=== PATIENT | female | born 1960 | race Caucasian/White ===

== ENCOUNTER → 2019-07-25 14:24 | Outpatient (CLI) | payer OTHER, SELFPAY ==
--- NOTE | ~2019-07-25 | CT_ITS ---
EXAMINATION: CT abdomen pelvis wo con EXAM DATE: 07/25/2019 14:48 INDICATION: Left lower quadrant pain. TECHNIQUE: Spiral CT of the abdomen and pelvis was performed without contrast. Axial, coronal and s agittal images were reviewed. The dose-length product (DLP) for this examination was 768.39 mGy-cm. The exposure was tailored according to patient size (auto mA exposure control), and iterative recons truction (ASIR) was used as additional dose reduction technique. There is no prior study for compari son. FINDINGS: The liver, spleen, adrenal glands and pancreas are unremarkable. Gallbladder is unremarkab le. No biliary obstruction. There is no nephrolithiasis or hydronephrosis. The uterus is unremark able. The bladder is unremarkable. There is no retroperitoneal or pelvic lymphadenopathy. The appendix is normal. The stomach and small bowel are unremarkable. There is expected amount of c olonic stool. No free intraperitoneal gas. The heart is normal in size. There are no pericardial or pleural effusions. The lung bases are unremarkable. Moderate to severe disc disease from L2-S1. There are no osteoblastic or osteolytic lesions identified. IMPRESSION: 1. No acute intra-abdominal findings. Reviewed, dictated and finalized at location A. 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
--- NOTE | ~2019-07-25 | XR_ITS ---
EXAMINATION: XR abdomen/kub 1V DATE: 07/25/2019 14:48 INDICATION: Left lower quadrant pain TECHNIQUE: KUB. FINDINGS: No prior studies for comparison. The visualized lung parenchyma is normal.. There is a nonobstructive bowel gas pattern. Gas and stool are seen throughout the colon to the level of the rectum. There is no free air. Moderate lumbar spo ndylosis with levoscoliosis. No abnormal calcifications. IMPRESSION: 1. No acute abdominal abnormality. Reviewed, dictated and finalized at location B. 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
== END ==
PROVIDERS: PCP Family Medicine; Visit Provider Urology
DX: R10.32 Left lower quadrant pain (principal)
CPT/HCPCS: 74018; 74176

== ENCOUNTER → 2021-01-26 07:00 | Outpatient (CLI) | payer OTHER, SELFPAY ==
[2021-01-26 21:00] LABS: SARS-CoV-2 RNA PCR Negative
== END ==
PROVIDERS: PCP Family Medicine; Visit Provider Family Medicine
DX: R51.9 Headache, unspecified (principal); R11.0 Nausea; R19.7 Diarrhea, unspecified; J02.9 Acute pharyngitis, unspecified; Z20.828 Contact with and (suspected) exposure to other viral communicable diseases
CPT/HCPCS: C9803; U0003; U0005

== ENCOUNTER 2021-04-25 15:56 | Outpatient (CLI) | payer OTHER, SELFPAY ==
--- NOTE | ~2021-04-25 | MM_ITS ---
EXAMINATION: MM screening [facility] BI w cruzito HISTORY: Screening mammogram TECHNIQUE: Craniocaudal and mediolateral oblique 3-D tomosynthesis images were obtained and synthetic 2-D images were generated. CAD analysis was submitted and interpreted. COMPARISON: 04/07/2014, 10/11/2012 bilateral screening mammogram examinations BREAST PARENCHYMAL COMPOSITION: There are scattered areas of fibroglandular density. FINDINGS: There is no evidence of suspicious mass, calcification, or architectural distortion to sugg est malignancy in either breast. There has been no suspicious interval change. IMPRESSION: 1. No mammographic evidence of malignancy. 2. Recommend routine screening mammography in one year. BI-RADS Category 1: Negative Reviewed, dictated and finalized at location A. 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
== END 2021-04-25 15:57 | disposition home or self-care (01) ==
LOC: ANHIMG 15:58
PROVIDERS: PCP Family Medicine; Visit Provider Family Medicine
DX: Z12.31 Encounter for screening mammogram for malignant neoplasm of breast (principal)
CPT/HCPCS: 77063; 77067

== ENCOUNTER 2022-10-22 15:36 | Outpatient (CLI) | payer OTHER, SELFPAY ==
--- NOTE | ~2022-10-22 | MM_ITS ---
EXAMINATION: MM screening [facility] BI w cruzito HISTORY: Screening mammogram TECHNIQUE: Craniocaudal and mediolateral oblique 3-D tomosynthesis images were obtained and synthetic 2-D images were generated. CAD analysis was submitted and interpreted. COMPARISON: 04/25/2021, 04/07/2014 bilateral screening mammogram examinations BREAST PARENCHYMAL COMPOSITION: There are scattered areas of fibroglandular density. FINDINGS: There is no evidence of suspicious mass, calcification, or architectural distortion to sugg est malignancy in either breast. There has been no suspicious interval change. IMPRESSION: 1. No mammographic evidence of malignancy. 2. Recommend routine screening mammography in one year. BI-RADS Category 1: Negative Reviewed, dictated and finalized at location A.
== END 2022-10-22 15:37 | disposition home or self-care (01) ==
LOC: ANHIMG 15:41
PROVIDERS: PCP Family Medicine; Visit Provider Family Medicine
DX: Z12.31 Encounter for screening mammogram for malignant neoplasm of breast (principal)
CPT/HCPCS: 77063; 77067

== ENCOUNTER 2023-10-27 14:30 | Outpatient (CLI) | payer OTHER, SELFPAY ==
--- NOTE | ~2023-10-27 | MM_ITS ---
EXAMINATION: MM screening [facility] BI w cruzito HISTORY: Screening TECHNIQUE: Craniocaudal and mediolateral oblique 3-D tomosynthesis images were obtained and synthetic 2-D images were generated. CAD analysis was submitted and interpreted. COMPARISON: Comparison to multiple prior studies sequentially, with oldest reviewed study dated 03/25. BREAST PARENCHYMAL COMPOSITION: There are scattered areas of fibroglandular density. FINDINGS: There is no evidence of suspicious mass, calcification, or architectural distortion to sugg est malignancy in either breast. There has been no suspicious interval change. IMPRESSION: 1. No mammographic evidence of malignancy. 2. Recommend routine screening mammography in one year. BI-RADS Category 1: Negative Reviewed, dictated and finalized at location B.
== END 2023-10-27 14:31 | disposition home or self-care (01) ==
PROVIDERS: PCP Family Medicine; Visit Provider Family Medicine
DX: Z12.31 Encounter for screening mammogram for malignant neoplasm of breast (principal)
CPT/HCPCS: 77063; 77067

== ENCOUNTER 2024-04-29 00:39 | Day surgery (SDC) | payer OTHER, SELFPAY ==
[2024-04-11 12:17] VITALS: BMI 28.6
[2024-04-29 11:59] VITALS: BP 132/73; PULSE 107; RESP 18; TEMP 37.2; O2SAT 98
[2024-04-29] MEDS: LACTATED RINGERS 1,000 ML 150 ML IV CONT (12:00)
--- NOTE | 2024-04-29 12:25 | PM.HPGS ---
History of Present Illness History of Present Illness Consent: Risks, benefits, and alternatives have been discussed and questions answered. Patient agrees to proceed with procedure. Chief complaint: personal hx colon polyps Narrative: Naina Darden is a 64 year old female with colon polyp in 2019 Review of Systems Review of Systems: All systems reviewed & are unremarkable except as noted in HPI and below PMFSH Past Medical History Medical History BSOM (bilateral serous otitis media) Cervical dysplasia Chronic pain after traumatic injury Dyshydrosis Family hx-breast malignancy Laceration of scalp Lupus (systemic lupus erythematosus) Reaction to severe stress Spigelian hernia TMJ arthropathy Traumatic coccydynia Family History Family History Sibling Family history of glaucoma Family history of pancreatic cancer, Onset Age: 60 Father Hypertension Cerebrovascular accident Family history of coronary artery disease Mother Family history of malignant neoplasm of breast in first degree relative Sibling Early onset Alzheimer's dementia Other Family history of arthritis Family history of malignant neoplasm Social History Social History Years smoked: 10 Smoking status: Former smoker Tobacco type: cigarettes Smoking end date: 05/25/10 Alcohol intake: never Substance use: never Substance use type: does not use Lack of Transportation: YES Lack of Food: Sometimes True Current Housing: I Have Housing Concerned About Future Housing: No Difficulty Paying Gas/Electric Bills: No Difficulty Paying for Meds: No Currently Unemployed: No Education: Bachelor's Degree Difficulty w/ Childcare or Family Care: No Living arrangements: with friend(s) Spiritual care concerns: No Meds Home Medications and Allergies Home Medications Medication Instructions Recorded Confirmed Type albuterol sulfate 90 mcg/actuation 2 puff inhalation Q4H PRN 11/11/21 04/29/24 Rx aerosol inhaler (ProAir HFA) shortness of breath or wheezing #8.5 grams metaxalone 800 mg tablet 800 mg PO QID PRN muscle pain #120 12/12/22 04/29/24 Rx tabs bupropion HCl 150 mg 24 hr tablet, 150 mg PO QAM #90 tabs 04/01/24 04/29/24 Rx extended release amitriptyline 10 mg tablet 10 mg PO HS 04/11/24 04/29/24 History atorvastatin 10 mg tablet 10 mg PO DAILY 04/11/24 04/29/24 History bimatoprost 0.01 % eye drops 1 drp EACH EYE HS 04/11/24 04/29/24 History ([place]ash[place]) budesonide-formoterol HFA 160 See Rx Instructions .Route 04/11/24 04/29/24 History mcg-4.5 mcg/actuation aerosol .COMPLEX PRN Shortness Of Breath inhaler (Symbicort) Or Wheezing famotidine 40 mg tablet 40 mg PO DAILY PRN Acid Reflux 04/11/24 04/29/24 History irbesartan 300 1 tablet PO DAILY 04/11/24 04/29/24 History mg-hydrochlorothiazide 12.5 mg tablet montelukast 10 mg tablet 10 mg PO DAILY 04/11/24 04/29/24 History Allergies Allergy/AdvReac Type Severity Reaction Status Date / Time naproxen Allergy Severe HIVES, Verified 04/29/24 11:54 SWELLING sulfamethoxazole Allergy Severe SWELLING, Verified 04/29/24 11:54 RASH tetracycline Allergy Severe SWELLING, Verified 04/29/24 11:54 ITCH trimethoprim Allergy Severe Unknown Verified 04/29/24 11:54 diclofenac Allergy Intermediate SWELLING Verified 04/29/24 11:54 lisinopril AdvReac Intermediate cough Verified 04/29/24 11:54 TOLMETIN SODIUM Allergy Severe RASH, Uncoded 04/11/24 12:08 SWELLING Vital Signs Vital Signs - 24 hr 04/29/24 11:59 Temperature 98.9 F Pulse Rate 107 H Respiratory Rate 18 Blood Pressure 132/73 Pulse Oximetry 98 Oxygen Delivery Room Air Exam Const: General: comfortable and no acute distress HENMT: Face/Nose/Sinus: Normal nares present Eyes: General: appearance normal, both eyes and all related structures Neck: Neck: no JVD Resp: Auscultation: clear to auscultation bilaterally Cardio: Rate: regular rate Rhythm: regular rhythm GI: Inspection: non-distended GI Palp: Yes Soft to palpation Skin: General skin exam: normal color Neuro: General: gait normal Speech: normal speech Extrem: General: normal to inspection Psych: Mental Status: mental status grossly normal Assessment and Plan Assessment and plan (1) Colon polyps: Code(s): K63.5 - Polyp of colon Status: Acute Assessment and Plan: colonoscopy
--- NOTE | 2024-04-29 12:28 | WPDANESEPPF ---
Anes - Initial Pre Proc Eval Procedure: Operation Date: 04/29/24 14:00 Proposed Procedures p Screening Colonoscopy - Kaiden Kim MD Date/Time: 04/29/24 12:28 Surgeon: Kaiden Kim MD Pre Op Diagnosis: personal hx colon polyps Patient Data Age: 64 Gender: F Height: 1.7 m Weight: 83.1 kg Last Vital Signs Temp 98.9 F 04/29/24 11:59 Pulse 107 H 04/29/24 11:59 Resp 18 04/29/24 11:59 BP 132/73 04/29/24 11:59 Pulse Ox 98 04/29/24 11:59 O2 Del Method Room Air 04/29/24 11:59 Allergies Allergy/AdvReac Type Severity Reaction Status Date / Time naproxen Allergy Severe HIVES, Verified 04/29/24 11:54 SWELLING sulfamethoxazole Allergy Severe SWELLING, Verified 04/29/24 11:54 RASH tetracycline Allergy Severe SWELLING, Verified 04/29/24 11:54 ITCH trimethoprim Allergy Severe Unknown Verified 04/29/24 11:54 diclofenac Allergy Intermediate SWELLING Verified 04/29/24 11:54 lisinopril AdvReac Intermediate cough Verified 04/29/24 11:54 TOLMETIN SODIUM Allergy Severe RASH, Uncoded 04/11/24 12:08 SWELLING Home Medications Medication Instructions Recorded Confirmed Type albuterol sulfate 90 mcg/actuation 2 puff inhalation Q4H PRN 11/11/21 04/29/24 Rx aerosol inhaler (ProAir HFA) shortness of breath or wheezing #8.5 grams metaxalone 800 mg tablet 800 mg PO QID PRN muscle pain #120 12/12/22 04/29/24 Rx tabs bupropion HCl 150 mg 24 hr tablet, 150 mg PO QAM #90 tabs 04/01/24 04/29/24 Rx extended release amitriptyline 10 mg tablet 10 mg PO HS 04/11/24 04/29/24 History atorvastatin 10 mg tablet 10 mg PO DAILY 04/11/24 04/29/24 History bimatoprost 0.01 % eye drops 1 drp EACH EYE HS 04/11/24 04/29/24 History ([place]) budesonide-formoterol HFA 160 See Rx Instructions .Route 04/11/24 04/29/24 History mcg-4.5 mcg/actuation aerosol .COMPLEX PRN Shortness Of Breath inhaler (Symbicort) Or Wheezing famotidine 40 mg tablet 40 mg PO DAILY PRN Acid Reflux 04/11/24 04/29/24 History irbesartan 300 1 tablet PO DAILY 04/11/24 04/29/24 History mg-hydrochlorothiazide 12.5 mg tablet montelukast 10 mg tablet 10 mg PO DAILY 04/11/24 04/29/24 History Patient hx anesthesia problems: none Family hx anesthesia problems: none Results Review: All pre-operative results and documents have been reviewed as part of the pre-operative evaluation. [facility] Past Medical History Medical History BSOM (bilateral serous otitis media) Cervical dysplasia Chronic pain after traumatic injury Dyshydrosis Family hx-breast malignancy Laceration of scalp Lupus (systemic lupus erythematosus) Reaction to severe stress Spigelian hernia TMJ arthropathy Traumatic coccydynia Family History Family History Sibling Family history of glaucoma Family history of pancreatic cancer, Onset Age: 60 Father Hypertension Cerebrovascular accident Family history of coronary artery disease Mother Family history of malignant neoplasm of breast in first degree relative Sibling Early onset Alzheimer's dementia Other Family history of arthritis Family history of malignant neoplasm Social History Social History Years smoked: 10 Smoking status: Former smoker Tobacco type: cigarettes Smoking end date: 05/25/10 Alcohol intake: never Substance use: never Substance use type: does not use Lack of Transportation: YES Lack of Food: Sometimes True Current Housing: I Have Housing Concerned About Future Housing: No Difficulty Paying Gas/Electric Bills: No Difficulty Paying for Meds: No Currently Unemployed: No Education: Bachelor's Degree Difficulty w/ Childcare or Family Care: No Living arrangements: with friend(s) Spiritual care concerns: No Anes - Eval Final PreProcedure Day of Procedure 04/29/24 12:28 Patient weight: normal Heart: regular rate and rhythm Lungs: clear to auscultation Airway: Mallampati scale class II Neurological: alert and oriented Last oral intake: >/= 8 hours ASA classification: III Emergent: no Anesthetic plan: proceed Anesthesia type and monitoring: general GIVS and standard monitoring Results Review: All pre-operative results and documents have been reviewed as part of the pre-operative evaluation. HTN, hyperlipidemia, smoker, 2-3 cigs/day. Informed Consent: The patient's anesthetic plan and its attendant risks and benefits were discussed with the patient/family/POA. Questions were solicited and answers provided to the satisfaction of the patient/family/POA.
[2024-04-29 12:47] VITALS: BP 80/45; PULSE 88; RESP 23; O2SAT 98
[2024-04-29 12:51] VITALS: BP 95/48
[2024-04-29 12:57] VITALS: BP 98/64; PULSE 86; RESP 18; O2SAT 100
[2024-04-29 13:07] VITALS: BP 110/66; PULSE 85; RESP 15; O2SAT 100
== END 2024-04-29 13:24 | disposition home or self-care (01) ==
PROVIDERS: PCP Family Medicine; Visit Provider Internal Medicine Gastroenterology
PROC: 0DJD8ZZ Inspection of Lower Intestinal Tract, Via Natural or Artificial Opening Endoscopic (ICD-10-PCS; CPT 45378; principal; 2024-04-29 14:00)
DX: Z12.11 Encounter for screening for malignant neoplasm of colon (principal); K57.30 Diverticulosis of large intestine without perforation or abscess without bleeding; L93.0 Discoid lupus erythematosus; G89.21 Chronic pain due to trauma; L30.1 Dyshidrosis [pompholyx]; M53.3 Sacrococcygeal disorders, not elsewhere classified; Z79.51 Long term (current) use of inhaled steroids; Z87.891 Personal history of nicotine dependence; Z86.0100 Personal history of colon polyps, unspecified; Z80.3 Family history of malignant neoplasm of breast; Z80.0 Family history of malignant neoplasm of digestive organs; Z82.49 Family history of ischemic heart disease and other diseases of the circulatory system
CPT/HCPCS: 45378; J2003; J2704; J7120